=== PATIENT | male | born 1950 | race African-American/Black ===

== ENCOUNTER 2020-06-24 11:52 | Emergency (ER) | payer OTHER ==
[~2020-06-24] VITALS: Ht 185.4 cm; Wt 90.7 kg
[~2020-06-24 11:52] MED LIST: AMARYL2 M1 PO; ASPIR 8181 MG PO; ATIVAN1 MG PO; CENTRUM SILVER1 EAC2 PO; CLARITIN10 MG PO; CONSTULOSE10 GM/15 M PO; HUMALOG100 UNIT/2 SUBQ; KEFLEX500 M1 PO; LANTUS100 UNIT/M SUBQ; LEVOTHYROXINE0.05 MG PO; LIPITOR40 MG PO; LOPRESSOR25 PO; METFORMIN HCL500 M1 PO; METFORMIN HCL500 M3 PO; METOPROLOL TART25 MG PO; MUCINEX600 MG PO; NITROGLYCERIN0.4 MG SUBLING; OMEGA-31000 M1 PO; OXCARBAZEPINE300 MG PO; PEPCID20 MG PO; PRAVASTATIN SOD20 MG PO; PREDNISONE 20 M20 MG PO; REMERON15 M2 PO; RISPERDAL50 MG/2 ML IM; RISPERIDONE ODT2 MG PO; SENEXON-S TABL1 EACH PO; SENNA-TIME S T1 EACH PO; TRAZODONE HCL50 MG PO; VITAMIN B-1100 M1 PO; ZOLOFT 50 MG TA50 M1 PO; ZYPREXA10 MG/VIAL IM
[2020-06-24] MEDS ORDERED: FLOMAX0.4 MG PO (11:58)
[2020-06-24] MEDS ORDERED: NABUMETONE 500500 M2 PO (11:59)
[2020-06-24] MEDS ORDERED: RISPERDAL50 MG/2 ML IM (12:00)
[2020-06-24 12:16] LABS: HEMATOCRIT 45.7 % (42.0-52.0); HEMOGLOBIN 15.2 gm/dL (14.0-18.0); MCH 28.7 pg (26.0-34.0); MCHC 33.3 g/dL (28.0-37.0); MCV 86.2 fL (80.0-100.0); RBC 5.3 mil/uL (4.50-6.00); WBC 7.8 thou/uL (4.0-11.0)
[2020-06-24 12:27] LABS: ICTOTEST (BILI CONFIRMATORY) Negative (Negative); URINE BILIRUBIN 1+ (Negative); URINE BLOOD 1+ (Negative); URINE CLARITY CLEAR; URINE COLOR YELLOW; URINE GLUCOSE-RANDOM* NEGATIVE (Negative); URINE KETONES TRACE (Negative); URINE LEUKOCYTES-REFLEX NEGATIVE (Negative); URINE NITRITE-REFLEX NEGATIVE (Negative); URINE PROTEIN (DIPSTICK) 2+ (Negative); URINE SPECIFIC GRAVITY >= 1.030 (1.005-1.035)
[2020-06-24 12:30] LABS: CALCIUM 8.8 mg/dL (8.5-10.1); CREATININE 1.1 mg/dL (0.7-1.3); POTASSIUM 3.5 mmol/L (3.5-5.1)
[2020-06-24 12:36] LABS: BACTERIA-REFLEX None Seen /HPF (None Seen); CRYSTALS None Seen /LPF (None Seen); SQUAMOUS 0-3 Few /LPF (0-3); URINE RBC 0-2 Rare /HPF (0-2); URINE WBC-REFLEX None Seen /HPF (0-5)
[2020-06-24 12:36] LABS: ALBUMIN 3.7 g/dL (3.4-5.0); TOTAL BILIRUBIN 0.5 mg/dL (0.2-1.0); TOTAL PROTEIN 7.4 g/dL (6.4-8.2)
[2020-06-24 13:59] VITALS: BP 145/94
--- NOTE | 2020-06-25 07:02 | EKG ---
[place] [address] [facility] [place] [address] ELECTROCARDIOGRAM REPORT Name: MIGUEL TOLEDO Room #: DEP MCKENNA Reynoso#: [id number] Admission: 06/24/20 Attend Phys: Discharge: 06/24/20 Date of : 54 Report #: [id number] [facility] ED Test Date: 2020-06-24 Test Time: 12:13:36 Pat Name: MIGUEL TOLEDO Department: Room: Gender: M Care Giver: ERIC : 1950 Requested By: Leandra Aly Order Number: [id number] MD: Yvan Cooper Measurements Intervals [place] Rate: 85 P: 37 ME: 167 QRS: 10 QRSD: 67 T: QT: 459 QTc: 546 Interpretive Statements Sinus rhythm Atrial premature complex Abnormal R-wave progression, early transition Borderline T abnormalities, lateral leads Prolonged QT interval Compared to ECG 08/29/2019 11:13:07 Atrial premature complex(es) now present T-wave abnormality now present Prolonged QT interval now present ST (T wave) deviation no longer present Electronically Signed On 06-25-2020 7:01:59 CDT by Yvan Cooper [email or web address] <ELECTRONICALLY SIGNED> By: Yvan Cooper MD, [facility] 06/25/20 0701 121 121 Yvan Cooper MD, [facility] /EPI
[2020-06-25] MEDS ORDERED: SENNA PLUS TAB1 EACH PO (19:32)
[2020-06-25] MEDS ORDERED: RISPERDAL50 MG/2 ML IM (19:32)
[2020-06-25] MEDS ORDERED: ASA81BEC PO (19:33)
[2020-06-25] MEDS ORDERED: NABUMETONE 500500 M2 PO (19:33)
[2020-06-25] MEDS ORDERED: ULTRAM50 MG PO (19:33)
[2020-06-25] MEDS ORDERED: KRISTALOSE20 GM PO (19:34)
[2020-06-25] MEDS ORDERED: FISH OIL 1,001000 M3 PO (19:34)
[2020-06-25] MEDS ORDERED: METFORMIN HCL500 M3 PO (19:34)
[2020-06-25] MEDS ORDERED: METOPROLOL TART25 MG PO (19:35)
[2020-06-25] MEDS ORDERED: OXCARBAZEPINE300 MG PO (19:35)
[2020-06-25] MEDS ORDERED: ATORVASTATIN CA80 MG PO (19:36)
[2020-06-25] MEDS ORDERED: AMARYL2 M1 PO (19:36)
[2020-06-25] MEDS ORDERED: SERTRALINE HCL100 MG PO (19:36)
== END 2020-06-24 15:30 ==
LOC: ER 11:52
PROVIDERS: Nurse Practitioner Family
DX: R09.81 Nasal congestion (principal); I10 Essential (primary) hypertension; E11.9 Type 2 diabetes mellitus without complications; F17.210 Nicotine dependence, cigarettes, uncomplicated; Z79.899 Other long term (current) drug therapy; Z79.82 Long term (current) use of aspirin; Z88.0 Allergy status to penicillin; Z88.8 Allergy status to other drugs, medicaments and biological substances

== ENCOUNTER 2020-06-25 18:04 | Emergency (ER) | payer OTHER ==
[~2020-06-25] VITALS: Ht 190.5 cm; Wt 107.5 kg
[~2020-06-25 18:04] MED LIST changes: +FLOMAX0.4 MG PO; +NABUMETONE 500500 M2 PO
[2020-06-25 18:42] LABS: ABSOLUTE NEUTROPHILS 4.4 thou/uL (1.4-8.2); BASOPHILS 0.7 % (0.0-2.0); EOSINOPHILS 1.4 % (0.0-3.0); HEMATOCRIT 44.4 % (42.0-52.0); HEMOGLOBIN 15.2 gm/dL (14.0-18.0); LYMPHOCYTES 27.1 % (24.0-44.0); MCH 29.3 pg (26.0-34.0); MCHC 34.2 g/dL (28.0-37.0); MCV 85.8 fL (80.0-100.0); MONOCYTES 9.7 % (1.0-8.0); PLATELET COUNT 140 thou/uL (150-400); POLYS 61.1 % (36.0-66.0); RBC 5.17 mil/uL (4.50-6.00); WBC 7.1 thou/uL (4.0-11.0)
[2020-06-25 18:48] LABS: URINE BILIRUBIN NEGATIVE (Negative); URINE BLOOD 1+ (Negative); URINE CLARITY CLEAR; URINE COLOR YELLOW; URINE GLUCOSE-RANDOM* NEGATIVE (Negative); URINE KETONES NEGATIVE (Negative); URINE LEUKOCYTES-REFLEX NEGATIVE (Negative); URINE NITRITE-REFLEX NEGATIVE (Negative); URINE PROTEIN (DIPSTICK) NEGATIVE (Negative)
[2020-06-25 18:57] LABS: SQUAMOUS 0-3 Few /LPF (0-3)
[2020-06-25 18:58] LABS: MUCUS 0-3 Light strn/LPF (None Seen); URINE RBC 0-2 Rare /HPF (0-2); URINE WBC-REFLEX 0-5 Rare /HPF (0-5)
[2020-06-25 19:00] LABS: BACTERIA-REFLEX 1-9 Few /HPF (None Seen); CASTS None Seen /LPF (None Seen); CRYSTALS None Seen /LPF (None Seen)
[2020-06-25 19:29] LABS: ALBUMIN 3.3 g/dL (3.4-5.0); CALCIUM 8.4 mg/dL (8.5-10.1); POTASSIUM 3.3 mmol/L (3.5-5.1); TOTAL BILIRUBIN 0.5 mg/dL (0.2-1.0); TOTAL PROTEIN 6.7 g/dL (6.4-8.2)
[2020-06-25] MEDS ORDERED: SENNA PLUS TAB1 EACH PO (19:32)
[2020-06-25] MEDS ORDERED: RISPERDAL50 MG/2 ML IM (19:32)
[2020-06-25] MEDS ORDERED: ULTRAM50 MG PO (19:33)
[2020-06-25] MEDS ORDERED: NABUMETONE 500500 M2 PO (19:33)
[2020-06-25] MEDS ORDERED: ASA81BEC PO (19:33)
[2020-06-25] MEDS ORDERED: FISH OIL 1,001000 M3 PO (19:34)
[2020-06-25] MEDS ORDERED: METFORMIN HCL500 M3 PO (19:34)
[2020-06-25] MEDS ORDERED: KRISTALOSE20 GM PO (19:34)
[2020-06-25] MEDS ORDERED: METOPROLOL TART25 MG PO (19:35)
[2020-06-25] MEDS ORDERED: OXCARBAZEPINE300 MG PO (19:35)
[2020-06-25] MEDS ORDERED: ATORVASTATIN CA80 MG PO (19:36)
[2020-06-25] MEDS ORDERED: SERTRALINE HCL100 MG PO (19:36)
[2020-06-25] MEDS ORDERED: AMARYL2 M1 PO (19:36)
[2020-06-26 05:10] VITALS: BP 140/71
[2020-06-26] MEDS ORDERED: LEVO-T50 MCG PO (06:41)
--- NOTE | 2020-06-26 07:04 | EKG ---
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 : 1950 Requested By: Azeb Diaz Order Number: [id number] MD: Yvan Cooper Measurements Intervals [place] Rate: 82 P: 38 [place]: 176 QRS: 6 QRSD: 71 T: QT: 446 QTc: 521 Interpretive Statements Sinus rhythm Atrial premature complex Abnormal R-wave progression, early transition Borderline T abnormalities, diffuse leads Prolonged QT interval No previous ECG available for comparison Electronically Signed On 06-26-2020 7:03:59 CDT by Yvan Cooper [email or web address] <ELECTRONICALLY SIGNED> By: Yvan Cooper MD, [facility] 06/26/20702 20 20 Yvan Cooper MD, FACC /EPI
== END 2020-06-26 05:14 ==
LOC: ER 18:04
PROVIDERS: Physician Assistant
DX: F20.9 Schizophrenia, unspecified (principal); Z20.822 Contact with and (suspected) exposure to COVID-19; Z79.899 Other long term (current) drug therapy; Z79.82 Long term (current) use of aspirin; Z88.8 Allergy status to other drugs, medicaments and biological substances; Z88.0 Allergy status to penicillin

== ENCOUNTER 2020-06-26 05:15 | Inpatient (IN) | payer OTHER ==
[~2020-06-26] VITALS: Ht 190.5 cm; Wt 103.7 kg
[2020-06-26 05:15] VITALS: BP 148/81
[~2020-06-26 05:15] MED LIST changes: +ASA81BEC PO; +ATORVASTATIN CA80 MG PO; +FISH OIL 1,001000 M3 PO; +KRISTALOSE20 GM PO; +SENNA PLUS TAB1 EACH PO; +SERTRALINE HCL100 MG PO; +ULTRAM50 MG PO
--- NOTE | 2020-06-26 06:26 | NUR ---
RECEIVED REPORT FROM ANGELIC RN, ED. PT ARRIVED ON UNIT 0515 THIS AM, PT AAOX4, VS B/P 148/81, P 75, R 16, T 97.5, 02 SAT 97% RA RR EVEN AND NONLABORED. PT LUNGS CHASE CLEAR, DIMINISHED, HT S1, S2, RR, ABD ACTIVE. PT DENIES PAIN AND SI/HI. PT HAS REMAINED CALM AND COOPERATIVE. HCP CONTACTED AND ORDERS RECEIVED. PT HX HTN, HLD, DM, COPD, CKD, SCHIZOPHRENIA, DEMENTIA AND SCHIZOAFFECTIVE. ZERO S/S OF ACUTE DISTRESS NOTED, PT WILL CONTINUE TO BE MONITOR PER [facility] PROTOCOOL.
[2020-06-26] MEDS ORDERED: LEVO-T50 MCG PO (06:41)
[2020-06-26 09:59] VITALS: BP 157/87
--- NOTE | 2020-06-26 10:27 | NUR ---
ASSUMED CARE AT 0700 TODAY. HE WAS ADMITTED LAST NIGHT. HE IS IRRITABLE WITH STAFF THIS MORNING. HE REFUSED HIS 0700 MEDICATIONS. AT 0900 HE STARTED TO REFUSE, BUT A PEER ENCOURAGED HIM TO TAKE HIS MEDICATIONS. HE DID SO. SAT ON THE UNIT DURING MORNING GROUP PART OF THE TIME AND THEN WENT TO HIS ROOM. HE IS UNSETTLED. HE WAS CALLING ON THE PHONE FOR OTHER PATIENTS UNTIL STAFF INTERVENED. HE CONTINUES TO BE MANIC GOING FROM THING TO THING.
[2020-06-26 10:52] VITALS: BP 157/87
[2020-06-26 12:09] VITALS: BP 157/87
--- NOTE | 2020-06-26 14:31 | NUR ---
MAIN contacted [place] to speak to Dioni Hart. She was given a fax number of [phone] for MAIN to send updates. Dioni did not answer, MAIN left a msg. MAIN contacted the P.A. guardian's office and was told that Amanuel is pt's casemanager. He can be reached at [phone]. MAIN introduced self and left her contact information. Amanuel said his fax is [phone]. Amanuel said he is happy to give any consent needed for pt. MAIN team will continue to follow pt during his stay on this unit.
[2020-06-26 19:22] VITALS: BP 169/85
--- NOTE | 2020-06-27 04:03 | NUR ---
06-26-20 CARE TRANSFERRED 0 OBSERVED PT SITTING IN BED. LATER PT AAOX4, VSS, RR EVEN AND NONLABORED ON RA. PT DENIES SI/HI/VAH AND PAIN. PT HAS BEEN JOKING AND INTERACTIVE AND HAS REMAINED CALM AND COOPERATIVE. EMPTY 300ML YELLOW URINE WITH NO SEDIMENT AND NO FOUL ODOR. LATER ASSISTED PT WITH BED ADJUSTMENT FOR PT COMFORT. ZERO S/S OF ACUTE DISTRESS NOTED, PT WILL CONTINUE TO BE MONITOR PER [facility] PROTOCOL.
[2020-06-27 06:03] LABS: CALCIUM 8.8 mg/dL (8.5-10.1); POTASSIUM 3.7 mmol/L (3.5-5.1)
[2020-06-27 09:55] VITALS: BP 154/83
--- NOTE | 2020-06-27 11:04 | NUR ---
Nutrition: RD eval due to new admit [facility]. Admitted with major neurocognitive disorder with behaviors. Ate 100% of all meals 4/7 on carb controlled diet. Hx DM, BG controlled. Possible weight decline of 14# or 6% over approx 1 year, not significant. Consider pt low nutrition risk at this time but will follow if additional interventions needed.
[2020-06-27 12:11] VITALS: BP 154/83
--- NOTE | 2020-06-27 12:17 | NUR ---
ASSUMED CARE OF PT. AT 0700 THIS MORNING. HE WAS PLEASANT AND COOPERATIVE WITH GETTING HIS VS AND BS COMPLETED TODAY. HE WAS COOPERATIVE WITH TAKING HIS MEDICATIONS AND GETTING HIS ASSESSMENT. HE CONTINUES TO BE SECLUSIVE ON THE UNIT OR IN HIS ROOM TODAY. HE SEEMS TO BE PREOCCUPIED WITH HIS THOUGHTS. HE WENT TO MORNING GROUP.
[2020-06-27 19:33] VITALS: BP 150/60
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
--- NOTE | 2020-06-28 05:29 | NUR ---
Assumed care on 06/27/20 @ 1900. Cooperative with care and compliant with medication administration. Awoke in the night and provided with tylenol 650 for general pain of 6/10, returned to sleep.
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
--- NOTE | 2020-06-28 15:03 | NUR ---
MAIN contacted [facility] to arrange discharge for pt. MAIN spoke with Diamante who gave her Dioni's cell ([phone]) and the Admin Guero's phone number ([phone]). MAIN also got the correct fax number for the facility ([phone]). MAIN contacted Dioni who said 2pm Wednesday is fine for pickup; [facility] will transport. He asked MAIN to fax updates on pt and said he will need a covid test. MAIN faxed updates. MAIN provided an update to Dr. Monique. MAIN team will continue to follow pt during his stay on this unit.
--- NOTE | 2020-06-28 20:03 | NUR ---
PT ASKED FOR PAPER AND PENCIL DUE TO DRAWING. PT THEN WALKED TO ROOM AND BACK TO DESK AND GAVE BACK PAPER AND PENCIL. HE STATED HE DRAWS AT VT.
--- NOTE | 2020-06-29 04:20 | NUR ---
RECEIVED CARE OF THIS PATIENT AT 1900. PATIENT ALERT AND ORIENTED X4. UP AND ABOUT. DENIES PAIN. SLEPT LITTLE THIS SHIFT.
[2020-06-29 08:25] VITALS: BP 138/78
[2020-06-29 09:50] VITALS: BP 138/78
--- NOTE | 2020-06-29 12:38 | NUR ---
1235 RESUMMED CARE FROM OVERNIGHT SHIFT THIS AM, PATIENT IN DAY ROOM SITTING QUIET. PATIENT ORIENTED TIMES 4 PATIENT DENIES SI/HI/AH/VH AT PRESENT. PATIENT ATE BREAKFAST TOOK MEDICATION WITHOUT INCIDENCE. PATIENTS ABDOMEN SOFT BOWEL SOUNDS PRESENT. PATIENTS LUNGS CLEAR PATIENT CALM COOPEATIVE DID PARTICIPATE IN GROUPS. WILL CONTINUE TO MONITOR PATIENT FOR SAFETY AND BEHAVIORS.
[2020-06-29 19:59] VITALS: BP 129/70
--- NOTE | 2020-06-30 01:26 | NUR ---
Assumed care on 06/29/20 @ 1900, seated in the day room, watching peers and staff, A&Ox4. Flat affect noted, cooperative with assessment and compliant with medication. Refuses Senna saying that he had a bm today. Continent of bowel and bladder. Sat up inthe day room in an upright chair. Allowed himself to be transferred into a emily chair. Slept in the emily chair throughout the night.
[2020-06-30 09:25] VITALS: BP 136/72
--- NOTE | 2020-06-30 13:18 | NUR ---
1300 RESUMMED CARE FROM OVERNIGHT SHIFT THIS AM, PATIENT IN ROOM LYING QUIETLY. PATIENT CAME TO DAY ROOM ATE BREAKFAST TOOK MEDICATION WITHOUT INCIDENCE. PATIENT ALERT ORIENTED TIMES 4 PATIENT DENIES SI/HI/AH/VH AT PRESENT. PATIENTS ABDOMEN SOFT BOWEL SOUNDS PRESENT PATIENTS LUNGS CLEAR. PATIENT AFFECT FLAT HE DOES NOT TALK MUCH TO STAFF OR OTHER PATIENTS. PATIENT HAS NOT DISPLAYED ANY BEHAVIORS WILL CONTINUE TO MONITOR PATIENT FOR SAFETY AND BEHAVIORS.
[2020-06-30 19:17] VITALS: BP 157/62
--- NOTE | 2020-07-01 04:13 | NUR ---
06-30-20 CARE TRANSFERRED 1899. LATER PT AAOX4, VSS, RR EVEN AND NONLABORED ON RA. PT DENIES PAIN AND SI/HI. PT PLEASANT, CALM AND COOPEATIVE. PT IS EASILY REDIRECTED. DURING MEDICATION ADMIN PT HAD NO DIFFICULTIES AND PT REPORTED HE WAS LOOKING FORWARD TO RETURNING TO [facility]. ZERO S/S OF ACUTE DISTRESS NOTED, PT WILL CONTINUE TO BE MONITOR PER [facility] PROTOCOL.
--- NOTE | 2020-07-01 08:26 | NUR ---
PT SITTING OUT IN DINING ROOM. PT DID TAKE MEDS THIS AM WITHOUT ANY ISSUES. PT REFUSED LACTULOSE STATING HE GOT ALREADY. PT EATING BREAKFAST.
[2020-07-01] MEDS ORDERED: ZYPREXA 5 MG TAB5 M1 PO (12:44)
[2020-07-01] MEDS ORDERED: LACTULOSE20 GM/30 M PO (12:48)
--- NOTE | 2020-07-01 13:35 | NUR ---
SW D/C NOTE SW faxed to both [facility] and pt's P.A. guardian pt's d/c docs. SW will file docs in pt's hospital file. No other needs for SW team to address at this time.
--- NOTE | 2020-07-01 14:35 | NUR ---
PT LEFT VIA W/C TO W/C TELMA TO [facility]. PT SIGNED DISCHARGE PAPERS. PT WANTED TO TAKE A FEW PAPER BAGS HE WROTE ON WITH HIM.
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
== END 2020-07-01 14:35 | DRG 885 ==
LOC: SBH 05:15
PROVIDERS: Nurse Practitioner Family; ADMIT Psychiatry & Neurology Psychiatry; ATTEND Psychiatry & Neurology Psychiatry
DX: F20.9 Schizophrenia, unspecified (principal); F01.51 Vascular dementia, unspecified severity, with behavioral disturbance; N18.9 Chronic kidney disease, unspecified; E78.5 Hyperlipidemia, unspecified; J44.9 Chronic obstructive pulmonary disease, unspecified; F17.210 Nicotine dependence, cigarettes, uncomplicated; I12.9 Hypertensive chronic kidney disease with stage 1 through stage 4 chronic kidney disease, or unspecified chronic kidney disease; E03.9 Hypothyroidism, unspecified; Z20.822 Contact with and (suspected) exposure to COVID-19; Z88.1 Allergy status to other antibiotic agents; Z88.0 Allergy status to penicillin
CPT/HCPCS: 10880

== ENCOUNTER 2020-08-20 11:31 | Emergency (ER) | payer OTHER ==
[~2020-08-20] VITALS: Ht 188 cm; Wt 108.9 kg
[~2020-08-20 11:31] MED LIST changes: +LACTULOSE20 GM/30 M PO; +LEVO-T50 MCG PO; +ZYPREXA 5 MG TAB5 M1 PO
[2020-08-20 13:22] LABS: ABSOLUTE NEUTROPHILS 3.3 thou/uL (1.4-8.2); BASOPHILS 0.6 % (0.0-2.0); EOSINOPHILS 0.9 % (0.0-3.0); HEMATOCRIT 42.1 % (42.0-52.0); HEMOGLOBIN 13.9 gm/dL (14.0-18.0); LYMPHOCYTES 18.6 % (24.0-44.0); MCH 28.3 pg (26.0-34.0); MCHC 33.1 g/dL (28.0-37.0); MCV 85.6 fL (80.0-100.0); MONOCYTES 8.7 % (1.0-8.0); PLATELET COUNT 126 thou/uL (150-400); POLYS 71.2 % (36.0-66.0); RBC 4.92 mil/uL (4.50-6.00); RDW 14.6 % (10.5-14.5); WBC 4.7 thou/uL (4.0-11.0)
[2020-08-20 13:27] LABS: CALCIUM 8.5 mg/dL (8.5-10.1); CREATININE 1.1 mg/dL (0.7-1.3); POTASSIUM 3.9 mmol/L (3.5-5.1)
[2020-08-20 13:33] LABS: ALBUMIN 3.4 g/dL (3.4-5.0); TOTAL BILIRUBIN 0.6 mg/dL (0.2-1.0); TOTAL PROTEIN 6.9 g/dL (6.4-8.2)
[2020-08-20 13:35] LABS: AMP/METHAMP Negative (Negative); BARBITURATES Negative (Negative); BENZODIAZEPINES Negative (Negative); COCAINE Negative (Negative); METHADONE Negative (Negative); OPIATES Negative (Negative); PCP Negative (Negative)
[2020-08-20 13:38] LABS: SALICYLATE < 2.8 mg/dL (2.8-20.0); TROPONIN-I <0.06 ng/mL (<0.06)
--- NOTE | 2020-08-20 13:45 | EKG ---
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 : 1950 Requested By: Azeb Diaz Order Number: [id number] MD: Yvan Cooper Measurements Intervals [place] Rate: 73 P: 38 AR: 160 QRS: 25 QRSD: 83 T: 57 QT: 397 QTc: 438 Interpretive Statements Sinus rhythm Compared to ECG 06/25/2020 18:21:52 Atrial premature complex(es) no longer present T-wave abnormality no longer present Prolonged QT interval no longer present Electronically Signed On 08-20-2020 13:45:17 CDT by Yvan Cooper [email or web address] <ELECTRONICALLY SIGNED> By: Yvan Cooper MD, [facility] 08/20/20 1345 16 16 Yvan Cooper MD, FACC /EPI
[2020-08-20 16:43] VITALS: BP 139/66
== END 2020-08-20 16:44 ==
LOC: ER 11:31
PROVIDERS: Emergency Medicine; Physician Assistant
DX: F20.9 Schizophrenia, unspecified (principal); Z20.822 Contact with and (suspected) exposure to COVID-19; J44.1 Chronic obstructive pulmonary disease with (acute) exacerbation; F03.90 Unspecified dementia, unspecified severity, without behavioral disturbance, psychotic disturbance, mood disturbance, and anxiety; I12.9 Hypertensive chronic kidney disease with stage 1 through stage 4 chronic kidney disease, or unspecified chronic kidney disease; E11.22 Type 2 diabetes mellitus with diabetic chronic kidney disease; N18.9 Chronic kidney disease, unspecified; E03.9 Hypothyroidism, unspecified; E78.5 Hyperlipidemia, unspecified; F17.210 Nicotine dependence, cigarettes, uncomplicated; Z88.8 Allergy status to other drugs, medicaments and biological substances; Z88.0 Allergy status to penicillin; Z79.899 Other long term (current) drug therapy; Z79.82 Long term (current) use of aspirin

== ENCOUNTER 2020-08-20 17:42 | Inpatient (IN) | payer OTHER ==
[~2020-08-20] VITALS: Ht 190.5 cm; Wt 100.9 kg
[2020-08-20 18:15] VITALS: BP 152/67
[2020-08-20 19:39] VITALS: BP 165/67
--- NOTE | 2020-08-20 20:11 | NUR ---
Arrived unit at 1700. pt was alert and oriented x2. pt denies si/hi, denies pain. vss, no sign of acute distress noted. pt blood sugar was 346. pt refused insulin. pt ambulates with a steady gait. carb control dinner was ordered for pt. No wound noted upon assessments. callus was noted on pt left great toe. pt was calm and co-operative upon assessments. dry skin was noted . will continue to monitor pt.
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
[2020-08-20 22:36] VITALS: BP 139/66
--- NOTE | 2020-08-21 05:07 | NUR ---
PATIENT AWOKE AT APPROXIMATELY 0130, CAME TO THE NURSING STATION AND ASKED FOR MARKERS AND PLAIN PAPER. HE SAT IN THE DAY AREA AND MADE AN ABSTRACT DRAWING AND IN THE LOWER CORNER FOR A SIGNATURE WROTE" J.C. ". HE RETURNED TO HIS ROOM WHERE HE SAT QUIETLY. WHEN LAB ROUNDED IN EARLY A.M. HE REFUSED TO HAVE HIS BLOOD DRAWN FOR THE A1C AND LIPID PROFILE. HE DECLINES ANY NEEDS AT THIS TIME. STAFF WILL CONTINUE TO MONITOR PER [facility] PROTOCOL.
[2020-08-21 08:31] LABS: CHOLESTEROL 156 mg/dL (<200); HDL CHOLESTEROL 47 mg/dL (>40); LDL CHOLESTEROL 94 mg/dL (<100); TC:HDL 3.3 Ratio (Not establshd); TRIGLYCERIDE 78 mg/dL (<150); VLDL 16 mg/dL (<40)
[2020-08-21 09:06] VITALS: BP 143/69
--- NOTE | 2020-08-21 09:42 | NUR ---
PATIENT INITIALLY REFUSED LAB DRAW THIS MORNING, EVENTUALLY ALLOWED IT AFTER ENCOURAGEMENT FROM THIS DIRECTOR OF SOFTWARE DEVELOPMENT, AND MULTIPLE STAFF. PATIENT REFUSED ALL HIS MORNING MEDICATIONS, INCLUDING INSULIN DESPITE ENCOURAGEMENT FROM THIS DIRECTOR OF SOFTWARE DEVELOPMENT, AND MULTIPLE STAFF. BLOOD SUGAR 224, "AM NOT TAKING ANY MEDICINE OR INSULIN, I HAVE THE RIGHT TO REFUSE CARE, AND MEDICINE". DR. KNUTSON NOTIFIED.
[2020-08-21 11:31] VITALS: BP 143/69
--- NOTE | 2020-08-21 12:47 | NUR ---
Assess due to new admit to [facility] with schizophrenia. Hx Diabetes, last A1C 7.1 1 yr ago. Usually eats 100% of meals. Wts within past wt range of 223-237 lb. Has been refusing some cares at home and here so far. Continue carb control diet, low nutrition risk
--- NOTE | 2020-08-21 14:56 | NUR ---
MAIN completed a SLUMS with pt and he scored a 14/30. SW team will continue to follow pt during his stay on this unit.
[2020-08-21 20:06] VITALS: BP 137/116
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
[2020-08-22 00:06] LABS: GLYCOHEMOGLOBIN (HGB A1C) 10.1 % (4.8-5.6)
--- NOTE | 2020-08-22 04:15 | NUR ---
PATIENT CARE ASSUMED AT 1900 ON 08-21-2020. PATIENT WAS SITTING IN DAYROOM WATCHING TELEVISION. HE WAS NOT INTERACTING WITH PEERS OR STAFF. WE ACCEPTED A HS SNACK. HE REFUSED HS ACCUCHECK, INSULIN AND PO MEDICATIONS. HE ASKED STAFF FOR PAPER AND MARKERS AND SAT ALONE DRAWING FOR APPROXIMATELY 2 HOURS. HE WAS CALM AND DID NOT HAVE ANY DISRUPTIVE BEHAVIORS. STAFF WILL CONTINUE TO MONITOR MR. TOLEDO PER [facility] PROTOCOL.
[2020-08-22 08:49] VITALS: BP 165/86
--- NOTE | 2020-08-22 16:16 | NUR ---
STRUCTURES FREE TIME SITTING IN ROOM OR DAYROOM COLORING QUIETLY. HAS REFUSED FINGERSTICKS AND INSULIN X 2 AT [id number] ORDER RECIEVED FROM DR SONI TO DO ACCUCHECK ONCE DAILY ONLY -ER PT REQUEST AND DID STATE TO DR SONI THAT HE WOULD COMPLY WITH THIS. CLUNTED AFFECT AND DELAYED VERBAL RESPONSES-OFFERS MINIMAL REPLIES TO QUESTIONS ASKED-DENIES SI/SH/HI. NO ACUTE ANXIETY NOTED OR REPORTED. GAIT STEADY WITHOUT ASSISTVE DEVICES. COMPLIENT WITH TAKING MEDICATIONS WHOLE-BP MILDLY ELEVATED PRIOR TO TAKING AM BP MEDS -BP RECHECK AT 1100 158/84-DENIES DIZZINESS ,VISUAL DISTURBANCE. DENIES PAIN. BS ACTIVE X4 -ABDOMEN ZADM-IMM-SCHEKA
[2020-08-22 19:34] VITALS: BP 142/62
--- NOTE | 2020-08-22 22:19 | NUR ---
ASSUMED PATIENT CARE AT 1900. PATIENT SITTING IN DAY AREA COLORING DURING THE EVENING. PATIENT TOOK HS OLANZAPINE MEDICATION WHOLE WITH WATER & REFUSED OTHER HS MEDICATIONS. PATIENT CALM AND COMPLIANT OTHERWISE AND INTERACTS MINIMALLY WITH OTHERS. SOFT SPOKEN, COMPLAINED ABOUT NOT GETTING ENOUGH FOOD DURING HIS MEALS. DID EAT HIS HS SNACK. INDPENDENT WITH AMBULATION AND TOILETING. WILL CONTINUE TO MONITOR.
--- NOTE | 2020-08-23 03:09 | NUR ---
PATIENT AGITATED, ASKING FOR CLOTHING, WALLET. DELUSIONAL THOUGHTS, BELIEVES HE IS IN THE [place]. SECURITY CALLED TO ASSIST. DONATIONS ATTENDANT WILDLIFE BIOLOGY INTERNSHIP IRIS CALLED, RECIEVED TELEPHONE RB ORDER OF GEODON 15MG IM ONE TIME AND MANUAL HOLD TO ENFORCE IM.
--- NOTE | 2020-08-23 13:58 | NUR ---
MAIN contacted pt's P.A. guardian protective services case worker Amanuel at [phone] to schedule a family meeting. No answer. MAIN left a msg. SW team will continue to follow pt during his stay on this unit.
[2020-08-23 14:13] VITALS: BP 142/60
--- NOTE | 2020-08-23 14:30 | NUR ---
Assumed pt care at 0700. pt was alert and oriented x4. ASSEssments completed, vss. pt took meds whole, no difficulty noted. Denies si/hi. Denies pain. Ambulates with a steady gait. upon assessments dry skin was noted, lotion applied to pt skin. pt is unco-operative with biomedical engineering technologist and care. Pt refused his Atorvastin, pt thought it was olanzapine. Dr Monique notified. Pt did not participate in groups. pt would not cooperative blOod sugar checks. Meds administered as other. At this time pt is in his room sleeping. Will continue to monitor.
[2020-08-23 19:51] VITALS: BP 149/78
--- NOTE | 2020-08-23 23:08 | NUR ---
ASSUMED CARE AT 1900. PATIENT SITTING IN DAY AREA WITH PEERS. NO S/S OF DISTRESS OR DISCOMFORT. REFUSED ALL HS MEDS EXCEPT OLANZAPINE AFTER THIS CHAIN MACHINE OPERATOR EXPLAINED THERE WAS AN IM ORDERED FOR OLANZAPINE REFUSAL. PATIENT COLORING AND QUIET, WATCHFUL OF STAFF AND OTHER PATIENTS. NOT COOPERATIVE WITH SKIN ASSESSMENT, MINIMALLY COOPERATIVE WITH ASSESSMENT QUESTIONS. WILL CONTINUE TO MONITOR.
[2020-08-24 09:58] VITALS: BP 151/90
--- NOTE | 2020-08-24 11:38 | NUR ---
1130 RESUMMED CARE FROM OVERNIGHT SHIFT THIS AM, PATIENT ROOM ACTING REBELIOUS ABOUT GETTING VITALS AND BS. AFTER TALKING WITH PATIENT HE ALLOWED ME TO DO THE VITALS BUT NOT BS. PATIENTS ABDOMEN SOFT BOWEL SOUNDS PRESENT PATIENTS LUNGS CLEAR. PATIENT DENIES SI/HI/AH/VH AT PRESENT PATIENT IS NOT TREATMENT FOCUSED. HE DID ATTEND ONE GROUP PATIENT LIKES TO STAY IN HIS ROOM; PATIENT THREW HIS METFORMIN AND ATORVASTATIN IN HIS EGGS. I TALKED WITH PATIENT AND TOLD HIM THAT HE NEEDS TO BE MORE TREATMENT FOCUSED. WILL CONTINUE TO MONITOR PATIENT FOR SAFETY AND BEHAVIORS.
[2020-08-25 00:29] VITALS: BP 151/90
--- NOTE | 2020-08-25 02:17 | NUR ---
Assumed care on 08/24/20 @ 1900, patient was behaving agressive with staff and intrusive and agressive with other patients. Olanzapine 5mg IM given @ 19:10 with staff x2 and security x2. Patient refused p.o. meds offered whole, and again refused meds crushed in yogart. Refused assessment. Did not sleep at night and was intrusive by standing at the nurses station leaning over the glass wall while other patient's private info was on the desk. When redirected to the day room, demanded the reason for why he could not stand leaning into the nurses station, and when given the reason, dismissed it saying, that is a dumb reason. At this writing, has not slept throughout the night.
[2020-08-25 09:01] VITALS: BP 108/53
--- NOTE | 2020-08-25 12:32 | NUR ---
Received awake on the day room. On room air. Vital signs stable. Able to take meds this AM w/o difficulty swallowing; refused to take lipitor and metformin after several attempts and explanation for medication- Dr Morales and Dr Monique informed re: refusal of 2 meds. On carb controlled diet- tolerating well; no nausea, no vomiting and no abdominal pain noted. On blood sugar monitoring, taken and recorded accordingly. Continent of bowel and bladder. No IV noted. No verbalizations of SI/HI. No visual, auditory and tactile hallucinations. No complains of pain made during assessment. In the day room most of the day. No episodes of aggression and combativeness. To continue monitoring patient.
[2020-08-25 19:11] VITALS: BP 152/61
--- NOTE | 2020-08-25 21:46 | NUR ---
ASSUMED CARE OF PATIENT AT 1900, PATIENT SITTING IN DAY AREA AT THAT TIME. PATIENT MORE INTERACTIVE WITH THIS CREEL HAND THIS EVENING, A&OX4. STATED HE DID NOT WANT TO GO BACK TO [facility], AND HAS ANOTHER RCF HE IS INTERESTED IN GOING TO. THIS CREEL HAND LET HIM KNOW HE WOULD BE HAVING A MEETING THIS WEEK. HE FURTHER REQUESTED A MEAL, STATING "THE KITCHEN IS 24 HOURS. I WANT SOME MEAT!", RE-EDUCATED THE MEAL AND SNACK TIMES AND THAT HE'D JUST EATEN IS NIGHT TIME SNACK. MORE EXPRESSIVE TODAY AND LESS SUPSICIOUS. TOOK HIS OLANZAPINE WHOLE AND REFUSED HIS OTHER HS MEDS. PROVIDED RE-EDUCATION FOR PURPOSES OF HIS MEDICATIONS. DENIES HI/SI/AVH/PAIN. AMBULATORY WITH STEADY GAIT, NO S/S OF DISTRESS OR DISCOMFORT. WILL CONTINUE TO MONITOR.
--- NOTE | 2020-08-26 12:30 | NUR ---
PT ALERT AND ORIENTED TIMES FOUR. WITH BLUNTED AFFECT. VSS. PT DENIES PAIN/SOA/SI/HI/AH/VH. PT TOLERATES MEDS AND MEALS. PT DID ATTEND AND PARTICIPATE IN GROUPS THIS SHIFT. PT HAS LITTLE INTERACTION WITH STAFF AND PEERS. WILL CONTINUE TO MONITOR.
--- NOTE | 2020-08-26 14:58 | NUR ---
Before tx team MAIN attemtped to contact Amanuel with the PA. Office. No answer. MANI left a msg. MAIN faxed updates for pt to [facility]. MAIN and Dr. Monique contacted Amanuel on his cell. No answer. Dr. Monique left a msg. They then contacted the P.A. office and left a msg with the legal secretary receptionist of the finisher plate division of the PA office. Dr. Monique received a call on his cell from Amanuel who agreed to come to the hospital on 08/27 @1300 for a family meeting. He stated that he does not see him having the ability to place pt elsewhere because of his behaviors. MAIN received a call from Dioni with [facility] at [phone]. MAIN provided to him an update on pt and the meeting that will occur tomorrow. MAIN will contact him after that meeting and provide to him an update. MAIN team will continue to follow pt during his stay on this unit.
--- NOTE | 2020-08-27 01:55 | NUR ---
ASSUMED PATIENT CARE AT 1900, NO S/S OF DISTRESS OR DISCOMFORT. PATIENT CONTINUES TO DECLINE HIS SCHEDULED MEDICAL MEDICATIONS, BUT DOES TAKE HIS SCHEDULED OLANZAPINE WITHOUT DIFFICULTY. HE REQUESTED A NIGHT TIME SNACK, SO HE WAS REQUESTED TO ALLOW US TO DO A GLUCOSE CHECK TO ENSURE HE WAS NOT HIGH. HE REFUSED INITIALLY, BUT ALLOWED US TO CHECK IT - ACCUCHECK WAS 92, AND HE WAS ALLOWED HIS SNACK. CONTINUES TO HAVE DIFFICULTY SLEEPING AT NIGHT, BUT DOES NOT WANT TO TAKE ANY SLEEP MEDICATION. HE IS OTHERWISE CALM AND COOPERATIVE. WILL CONTINUE TO MONITOR.
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
[2020-08-27 06:45] LABS: CREATININE 1.3 mg/dL (0.7-1.3); POTASSIUM 4.3 mmol/L (3.5-5.1)
[2020-08-27 09:33] VITALS: BP 136/68
--- NOTE | 2020-08-27 10:22 | NUR ---
RT Progress Note- Harry has made progress towards RT goals during this review period. Harry's presence in group has improved as far as duration. He does continue to respond to internal stimuli (mumbling to self or identifying that he has been talking to someone) as well as expressing various flights of ideas such as being concieved in [place]/born in [place]. Harry also exhibits appropriate leisure planning skills during free time as he enjoys coloring and will ask for supplies as needed. HEAD SILVERMAN will continue to encourage this progress.
[2020-08-27 19:30] VITALS: BP 147/62
--- NOTE | 2020-08-27 22:35 | NUR ---
ASSUMED CARE OF PATIENT AT 1900, NO S/S OF DISTRESS OR DISCOMFORT. TOOK OLANZAPINE WITHOUT DIFFICULTY, BUT REFUSED HIS MEDICAL MEDS ADAMENTLY. RE-EDUCATED ON PURPOSE OF MEDICATIONS. C/O OF QUALITY OF FOOD, SAYS HE DID NOT EAT LUNCH OR DINNER DUE TO BEING "NOT FOOD!". WILL CONTINUE TO MONITOR.
--- NOTE | 2020-08-28 08:47 | NUR ---
MAIN and Dr. Monique attended a family meeting via phone with Amanuel Miles and his line construction supervisor. Pt's condition was discussed including that his MH illness has likely advanced to a dementia. RC and line construction supervisor said they have no options but to keep him with [facility] due to his behaviors. They do not think it is a good idea to put pt with a population that is more vulnerable than he is. SW asked what they plan is if pt gets evicted from [facility] due to behaviors. RC and line construction supervisor responded that [facility] has many options for housing. Discharge plan will be for pt to discharge back to [facility]. SW team will continue to follow pt during his stay on this unit.
--- NOTE | 2020-08-28 11:05 | NUR ---
Followup: pt remains on SB[facility]. Eating better 75-100%. Significant issues with hyperglycemia with BG in 400s. Pt often refuses oral diabetic medications. Wt loss 9 lb over 4 days possibly due to hyperglycemia. Continue carb control diet order. Low nutrition risk with possible discharge soon.
--- NOTE | 2020-08-28 14:45 | NUR ---
PT ALERT AND ORIENTED TIMES THREE. WITH BLUNTED AFFECT. PT TOOK OLANZAPINE THIS MORNING BUT REFUSED ALL OTHER MEDICATIONS, BLOOD SUGARS AND VITAL SIGNS. PT TOERATES MEALS. PT DID ATTEND GROUPS. PLANS FOR POSSIBLE DISCHARGE TOMORROW. WILL CONTINUE TO MONITOR.
--- NOTE | 2020-08-29 04:09 | NUR ---
Assumed care on 08/28/20 @ 19:15, seated in the day room watching baseball. A&Ox3, Accepted Oxycarbazepine 150 and Olanzapine 7.5, refused the remainder of the medicaitons, refused VS and FSBS. Pleasant and cooperative with care. Retired @ HS and slept most of the night, awakening once or twice for about 15 minutes each time. Will continue to monitor for safety and comfort as per unit protocol.
[2020-08-29 08:42] VITALS: BP 152/90
[2020-08-29] MEDS ORDERED: OXCARBAZEPINE300 MG PO (09:35)
[2020-08-29] MEDS ORDERED: GLUCOPHAGE1000 MG PO (09:37)
[2020-08-29] MEDS ORDERED: GLIPIZIDE ER2.5 MG PO (09:39)
[2020-08-29] MEDS ORDERED: SYNTHROID25 MC1 PO (09:42)
--- NOTE | 2020-08-29 11:35 | NUR ---
Assumed pt care at 0700. pt was alert and oriented to person, situation and time. Assessments completed, vss. Pt refused all 9am meds. refused to get his blood sugar checked, No insulins administered. Ambulates with a steady. Denies si/hi, denies pain. Pt is unco-operative with assessments and care. Pt refused to get discharge at 1024. Pt was confused, screaming when typewriter tester and other staff tried to redirect him. DR agudelo was notified of pt behavior. DR agudelo assessed the situation, DR tried redirecting pt. pt continue with aggresion, increased agitation. Geodon 20mg was ordered per Dr agudleo and administered by typewriter tester at 1024. Reassessment pt have been calm sitting in the day room. Pt blood sugar was 421. Dr Jameson notified. Will continue to monitor. monitor pt.
--- NOTE | 2020-08-29 15:43 | NUR ---
MAIN was informed that pt was refusing to go with [facility] to discharge home. MAIN spoke with pt who insisted that he has a vasques bin with money in it that staff will not return to him. SW asked about his inventory sheet and was told by the community associate that she showed it to him, but pt still insists that is no true. He said that his things are in the back room. MAIN walked with pt, security, and a FACULTY I ON CALL MEDICAL ASSISTANT to the locker room so that pt can see if his bin is in there. SW looked everywhere in the locker room and did not see the vasques bin he was referring to. He then said "they moved it." SW tried to explain to pt that he may believe that is true, but that the bin is not here. Pt became loud and upset while being insistent that staff is lying. canceled pt's discharge. He then ordered an IM injection for pt to calm him. The plan moving forward is to give pt IM injections as a back up to his med refusal. and MAIN contacted Amanuel. No answer. Dr. Monique left a msg. MAIN contacted Dioni with [facility]. No answer. MAIN left a msg. MAIN contacted admissions and spoke with Diamante. MAIN provided to her an update. Diamante said she will update the team. MAIN team will continue to follow pt during his stay on this unit.
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
--- NOTE | 2020-08-30 14:48 | NUR ---
WAS COMPLIENT WITH TAKING 0900 PSYCHIATRIC MEDS WHEN INFORMED IH HE DID NOT TAKE PILL WOULD GET A SHOT-TOOK A FEW OTHER 0900 MEDICATIONS BUT INSISTS THAT HE DOES NOT HAVE DIABETIS OR HTN SO REFUSES BP MEDS AND ORAL HYPOGLYCEMICS-REFUSES TO HAVE VS TAKEN DESPITE MULTIPLE REATTEMPTS THROUGHOUT AM. VISIBLE IN DAYROOM SITTING WATCHING TV OR PARTICIPATING IN GROUP. IS NOTED TO BE TALKING TO SELF/UNSEEN OTHERS? NOTED TO HAVE LOUND CONVERSATION IN DAYROOM WHERE HE IS WAVING ARMS-ANIMATED FACIAL EXPRESSION. WHEN ASKED WHO HE WAS TALKING TO STATES "NO ONE"DOES REPORT SOME SHOULDER PAIN THIS MA BUT REFUSES OFFERS OF TYLENOL FOR PAIN-DOES STATE FEELS BETTER AFTER STRETCHING DURING AM EXERCISE GROUP. GAIT STEADY WITHOUT ASSISTIVE DEVICES
--- NOTE | 2020-08-30 15:36 | NUR ---
NOTED TO BE AT [employer] FOR 1400 SNACK-PREPARING OWN COFFEE-ADDED APPROX 8-10 PACKETS OF SUGAR AND 4 CREAMERS-WHEN STAFF INTERVENED WAS RESISITVE WITH REQUESTS TO DUMP OT COFFEE BLOOD SUGAR THIS AM WAS HIGH AND HAS NOT BEEN TAKING INSULIN ON A CONSISTANT BASIS-AT THIS POINT HE DRANK APPROX 3/4 OF COFFEE AND THREW CUP IN TRASH-MUMBLING INCOHERENTLY TO SELF HE WALKS AWAY.
--- NOTE | 2020-08-30 23:40 | NUR ---
PT IS A/O X2. IS PLEASANT AND COOPERATIVE BUT AT TIMES CAN BE IRRITABLE AND EASILY AGITATED. REFUSED TO TAKE HS BLOOD SUGAR MEDICATION. HS BS ELEVATED. NURSE EXPLAINED RISKS/BENEFITS AND PT STILL REFUSED TO TAKE IT. ALL OTHER MEDICATION GIVEN PER MAR. DENIES C/O PAIN OR DISCOMFORT. VSS AFEBRILE. IS UP INDEPENDENTLY AND IS CONCERNED WITH NOT WANTING TO TAKE MIND ALTERING MEDICATIONS. AT THIS TIME PT IS LYING IN HIS BED WITH EYES CLOSED. WILL CONTINUE TO MONITOR.
[2020-08-31 09:20] VITALS: BP 149/68
--- NOTE | 2020-08-31 18:39 | NUR ---
PT REFUSED HIS ORAL MEDS THIS AM AND HAD TO BE GIVEN IM HALDOL. HE IS ALERT ORIENTED X4. RESPIRATIONS ARE NOT EVEN. HE WANTS TO BE DISCHARGED HOME. WILL CONT WITH PLAN OF CARE.
--- NOTE | 2020-09-01 05:32 | NUR ---
08-31-20 CARE TRANSFERRED 1900 OBSERVED PT SITTING IN DAY ROOM. LATER PT AAOX3, VSS, RR EVEN AND NONLABORED ON RA. PT DENIES SI/HI AND PAIN. PT PRESENTS CALM AND COOPERATIVE. DURING MEDICATION ADMIN PT HAD NO DIFFICULTIE TAKING MEDICATION WHOLE WITH WATER, PT REPORTED HE WAS READY TO GO BACK TO [facility], PT REPORTED BM THIS AM. ZERO S/S OF ACUTE DISTRESS NOTED, PT WILL CONTINUE TO BE MONITOR PER [facility] PROTOCOL.
[2020-09-01 07:45] VITALS: BP 125/61
[2020-09-01 09:36] VITALS: BP 125/61
--- NOTE | 2020-09-01 10:56 | NUR ---
PATIENT CARE ASSUMED AT 0700- APPROACHED AND WAS ASLEEP IN HIS ROOM. DIFFICULT TO AROUSE - AT THIS TIME VITALS TAKEN AND BLOOD SUGAR WHICH WAS 262. WHEN BREAKFAST ARRIVED PATIENT CAME TO DINING AREA. IRRITABLE AND UNCOOPERATIVE AT FIRST. TOOK ALOT OF ENCOURAGEMENT FOR PATIENT TO TAKE MEDICATIONS AND AGREE TO INSULIN INJECTION OF 17 UNITS - WAS RELUCTANT AND RESISTANT AT FIRST. HAD EKG AFTER BREAKFAST AND TOLERATED WELL. PATIENT'S BEHAVIOR BECAME MORE AGREEABLE MORNING PROGRESSED. ASSESSED AND NO PAIN OR CONCERNS WHEN QUESTIONED. STEADY ON FEET WHEN AMBULATING THIS MORNING. WILL CONTINUE TO MONITOR FOR SAFETY AND ADDRESS ANY CONCERNS ACCORDINGLY.
--- NOTE | 2020-09-01 13:45 | EKG ---
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 : 1950 Requested By: Tobin Monique Order Number: [id number] MD: Joshua Kerr Measurements Intervals [place] Rate: 93 P: 62 UT: 176 QRS: 41 QRSD: 82 T: 82 QT: 430 QTc: 535 Interpretive Statements Sinus rhythm Supraventricular bigeminy early transition Nonspecific ST/T wave abnormalities Compared to ECG 08/20/2020 12:17:33 Atrial premature complex(es) now present Electronically Signed On 09-01-2020 13:45:30 CDT by Joshua Kerr [email or web address] <ELECTRONICALLY SIGNED> By: Joshua Kerr MD 09/01/20 1345 [id number] Joshua Kerr MD /EPI
--- NOTE | 2020-09-02 03:37 | NUR ---
09-01-20 CARE TRANSFERRED 1899. LATER PT RESTING IN BED WITH EYES CLOSED, PT EASILY AWAKEN WITH VOICE. PT AAOX3, VSS, RR EVEN AND NONLABORED ON RA. PT DENIES SI/HI AND PAIN. PT PRESENTED DROWSY BUT REMAINED CALM AND COOPERATIVE THROUGHOUR NURSING ASSESSMENT. LATER PT CAME TO DAY ROOM AND ATE 100% HS SNACK. DURING MEDICATION ADMIN PT ACCEPTED ALL MEDICATION BUT REFUSED METFORMIN, PT STATED "I DON'T NEED THAT METFORMIN", PT HAD NO DIFFICULTIES TAKING MEDICATION WITH WATER. PT BED WAS ADJUSTED FOR PT COMFORT AND BED ALARM WAS SET. ZERO S/S OF ACUTE DISTRESS NOTED, PT WILL CONTINUE TO BE MONITOR PER [facility] PROTOCOL.
[2020-09-02 09:32] VITALS: BP 114/52
--- NOTE | 2020-09-02 14:08 | NUR ---
Assumed pt care at 0700. pt was in his room resting. pt was alert and oriented to person and situation. active bowel sounds. Denies si/hi, denies pain. unco-operative with care and medical device assembler. Pt refused getting his blood sugar tested. No insulin was administered to pt at this time. No sign of acute distress noted upon assessments. Ambulates with a steady. AT this time pt is in his room resting. Will continue to monitor.
[2020-09-02 19:50] VITALS: BP 148/64
--- NOTE | 2020-09-03 06:04 | NUR ---
RECEIVED REPORT FROM OFF GOING RN THAT PT REFUSED 1730 ACCU WITH INSULIN. 09-02-20 CARE TRANSFERRED 1900. RECEIVED REPORT FROM FIRE FIGHTING EQUIPMENT SPECIALIST THAT PT REFUSED VS. PT AAOX3, MANUAL B/P 148/64, P 82, R 16, T 97.5, 02 SAT 95% RA RR EVEN AND NONLABORED ON RA. PT BLD GLUCOSE 325, PT REPORTED HE WILL TAKE REGULAR INSULIN BUT WILL NOT TAKE METFORMIN. PT DENIES SI/HI AND PAIN. HCP Bill SINGH NP CONTACTED AND RECEIVED AN ONETIME ORDER OF 5 UNITS REGULAR INSULIN, PT HAD NO DIFFICULTEIS TAKING HIS MEDICATION. PT BED WAS ADJUSTED FOR COMFORT, ZERO S/S OF ACUTE DISTRESS NOTED, PT WILL CONTINUE TO BE MONITOR PER [facility] PROTOCOL.
[2020-09-03 10:22] VITALS: BP 109/60
--- NOTE | 2020-09-03 11:23 | NUR ---
Yesterday, MAIN contacted Fransisca with [facility] at [phone] and provided to her an update. She said the decision has been made for pt to indeed return to [facility] opposed to [facility] because they cannot handle his behaviors. MAIN discussed with her that pt is being switched to the injectable version of haldol due to pt's non-compliance with meds. Fransisca told MAIN that she will need to speak to Admin Guero. MAIN spoke with Guero and explained pt's med regimen to him. He informed MAIN that they are equipped to give pt interim injections for med refusal until his next scheduled haldol injection. MAIN and Guero agreed upon a 1030 am discharge on 09/04/20. He said if pt again refuses to go with [facility], he can send one of his drivers to pick pt up. MAIN team will continue to follow pt during his stay on this unit.
--- NOTE | 2020-09-03 11:54 | NUR ---
RT Progress Note- Harry has been very engaged in recreational therapy groups throughout this review period. He occasionally shows response to internal stimuli throughout groups (talking to unseen others, mumbling under breath) as well as offering various ideas such as it being a different date, but is easily refocused. Harry has also taken to listening to audio books during unscheduled time. PLANT ECOLOGIST will continue to encourage progress.
--- NOTE | 2020-09-03 13:02 | NUR ---
Assumed pt care at 0700. Pt was in the day room listening to notebook. PT WAS alert and oriented to person and situation. Assessments completed, vss. pt refused his meds. Pt insisted on getting a shot instead of taking his PO meds. Pt denies si/hi, denies pain at this time. Pt ambulates with a steady gait. pt toilet self. Refuse noon blood sugar test. At this time pt is in the day room. Make need known to staff. Will continue to monitor.
[2020-09-04 09:18] VITALS: BP 101/79
--- NOTE | 2020-09-04 09:26 | NUR ---
0926 RESUMMED CARE FROM OVERNIGHT SHIFT THIS AM, PATIENT SITTING IN DAY ROOM QUIET. PATIENT ALERT ORIENTED TIMES 4 PATIENT DENIES SI/HI/AH/VH AT PRESENT. PATIENTS ABDOMEN SOFT BOWEL SOUNDS PRESENT PATIENTS LUNGS CLEAR. PATIENT CALM COOPERATIVE THIS AM PATIENT IS DISCHARGING TO [place] THIS AM. REPORT CALLED TO [facility] PATIENT DISCHARGED WITH AFTER CARE INSTRUCTIONS AND SCRIPT E SIGNED TO PHARMACY.
[2020-09-04] MEDS ORDERED: BAYER CHEWABLE81 MG PO (09:38)
[2020-09-04] MEDS ORDERED: METOPROLOL TART25 MG PO (09:38)
[2020-09-04] MEDS ORDERED: Lipitor 40 MG Tab PO (09:38)
[2020-09-04] MEDS ORDERED: FISH OIL 1,0001 EAC5 PO (09:38)
[2020-09-04] MEDS ORDERED: LANTUS SUBQ (09:38)
[2020-09-04] MEDS ORDERED: HALOPERIDOL 5 MG5 MG PO (09:38)
--- NOTE | 2020-09-04 12:55 | NUR ---
MAIN D/C NOTE MAIN faxed d/c docs to both [facility] and pt's PA. Perez. MAIN will file docs in pt's hospital file. No other needs for SW team to address at this time.
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
== END 2020-09-04 10:00 | DRG 885 ==
LOC: SBH 17:42
PROVIDERS: Internal Medicine; ADMIT Psychiatry & Neurology Psychiatry; ATTEND Psychiatry & Neurology Psychiatry
DX: F20.9 Schizophrenia, unspecified (principal); F01.51 Vascular dementia, unspecified severity, with behavioral disturbance; N18.9 Chronic kidney disease, unspecified; E78.5 Hyperlipidemia, unspecified; E03.9 Hypothyroidism, unspecified; J44.9 Chronic obstructive pulmonary disease, unspecified; I12.9 Hypertensive chronic kidney disease with stage 1 through stage 4 chronic kidney disease, or unspecified chronic kidney disease; E78.00 Pure hypercholesterolemia, unspecified; E11.22 Type 2 diabetes mellitus with diabetic chronic kidney disease; L57.0 Actinic keratosis; Z20.822 Contact with and (suspected) exposure to COVID-19; Z87.891 Personal history of nicotine dependence; Z88.0 Allergy status to penicillin; Z88.8 Allergy status to other drugs, medicaments and biological substances
CPT/HCPCS: 10880

== ENCOUNTER 2020-10-11 10:54 | Emergency (ER) | payer OTHER ==
[~2020-10-11] VITALS: Ht 188 cm; Wt 108.9 kg
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
[~2020-10-11 10:54] MED LIST changes: +BAYER CHEWABLE81 MG PO; +FISH OIL 1,0001 EAC5 PO; +GLIPIZIDE ER2.5 MG PO; +GLUCOPHAGE1000 MG PO; +HALOPERIDOL 5 MG5 MG PO; +LANTUS SUBQ; +Lipitor 40 MG Tab PO; +SYNTHROID25 MC1 PO
[2020-10-11 12:35] VITALS: BP 164/82
== END 2020-10-11 12:35 ==
LOC: ER 10:54
DX: S60.221A Contusion of right hand, initial encounter (principal); E03.9 Hypothyroidism, unspecified; E11.22 Type 2 diabetes mellitus with diabetic chronic kidney disease; I12.9 Hypertensive chronic kidney disease with stage 1 through stage 4 chronic kidney disease, or unspecified chronic kidney disease; N18.9 Chronic kidney disease, unspecified; F17.210 Nicotine dependence, cigarettes, uncomplicated; J44.9 Chronic obstructive pulmonary disease, unspecified; W22.8XXA Striking against or struck by other objects, initial encounter; Y93.89 Activity, other specified; Y92.89 Other specified places as the place of occurrence of the external cause; Y99.8 Other external cause status

== ENCOUNTER → 2020-12-16 | Outpatient (CLI) | payer OTHER | LOC: SJCVC 09:31 | PROVIDERS: ATTEND Internal Medicine Cardiovascular Disease | DX: R94.31 Abnormal electrocardiogram [ECG] [EKG] (principal); R06.00 Dyspnea, unspecified; I11.9 Hypertensive heart disease without heart failure; E78.00 Pure hypercholesterolemia, unspecified; R60.9 Edema, unspecified; J44.9 Chronic obstructive pulmonary disease, unspecified; E11.9 Type 2 diabetes mellitus without complications; E78.5 Hyperlipidemia, unspecified; E03.9 Hypothyroidism, unspecified; F17.210 Nicotine dependence, cigarettes, uncomplicated; F17.209 Nicotine dependence, unspecified, with unspecified nicotine-induced disorders; Z79.82 Long term (current) use of aspirin; Z79.899 Other long term (current) drug therapy; Z79.84 Long term (current) use of oral hypoglycemic drugs; Z88.0 Allergy status to penicillin ==

== ENCOUNTER → 2021-01-07 | Outpatient (CLI) | payer OTHER | LOC: SJCVCIMAG 08:12 | PROVIDERS: ATTEND Internal Medicine Cardiovascular Disease | DX: I51.89 Other ill-defined heart diseases (principal); I48.91 Unspecified atrial fibrillation; I12.9 Hypertensive chronic kidney disease with stage 1 through stage 4 chronic kidney disease, or unspecified chronic kidney disease; E11.22 Type 2 diabetes mellitus with diabetic chronic kidney disease; N18.9 Chronic kidney disease, unspecified; E78.5 Hyperlipidemia, unspecified; R00.2 Palpitations; R94.31 Abnormal electrocardiogram [ECG] [EKG]; R06.00 Dyspnea, unspecified; F32.9 Major depressive disorder, single episode, unspecified; E03.9 Hypothyroidism, unspecified; J44.9 Chronic obstructive pulmonary disease, unspecified; E78.00 Pure hypercholesterolemia, unspecified; F17.210 Nicotine dependence, cigarettes, uncomplicated; Z88.0 Allergy status to penicillin; Z88.8 Allergy status to other drugs, medicaments and biological substances; Z79.82 Long term (current) use of aspirin; Z79.84 Long term (current) use of oral hypoglycemic drugs; Z79.899 Other long term (current) drug therapy ==